=== PATIENT | male | born 1995 | race African-American/Black ===

== ENCOUNTER 2024-07-24 16:14 | Emergency (ER) | payer OTHER ==
[~2024-07-24] VITALS: Ht 188 cm; Wt 90.0 kg
[2024-07-24 16:21] VITALS: BP 116/63; PULSE 82; RESP 18; TEMP 36.9; O2SAT 98
== END 2024-07-24 16:48 | disposition home or self-care (01) ==
LOC: ER 16:14
DX: Z65.3 Problems related to other legal circumstances (principal)
CPT/HCPCS: 99283